=== PATIENT | male | born 1980 | race Caucasian/White ===

== ENCOUNTER 2016-07-19 09:56 | Observation (INO) | payer OTHER ==
[~2016-07-19] VITALS: Ht 177.8 cm; Wt 130.3 kg
[~2016-07-19 09:56] MED LIST: ACET1CAP18 PO; BACITRACIN TOP OINT 15 GM TUBE ONE; LIDOCAINE 1%/EPINEPHrine 1:100,000 SOLN 50 ML VIAL ONE; MULTTAB67 PO; OXYMETAZOLINE HCL 0.05% 15 ML NASAL SPRAY ONE
[2016-07-19] MEDS ORDERED: AMPICILLIN-SULBACTAM INJ 3 GM VIAL ONE (10:33)
[2016-07-19] MEDS ORDERED: SODIUM CHLORIDE 0.9% INJ 100 ML ONE (10:34)
[2016-07-19 10:42] VITALS: BP 153/82; PULSE 59; RESP 20; TEMP 97.7; O2SAT 97
[2016-07-19] MEDS ORDERED: SODIUM CHLORID 0.9% 500 ML IV PRN (10:45)
[2016-07-19] MEDS ORDERED: INSULIN HUMAN REGULAR 1,000 UNITS/10 ML VIAL SQ PRN (10:45)
[2016-07-19] MEDS ORDERED: METOPROLOL TARTRATE 25 MG TAB PO PRN (10:45)
[2016-07-19] MEDS ORDERED: CHLORHEXIDINE GLUCONATE 2 % 1 PACK (2 CLOTHS) TOPICAL PRN (10:45)
[2016-07-19] MEDS ORDERED: LACTATED RINGER'S 1000 ML IV PRN (10:45)
[2016-07-19] MEDS ORDERED: POVIDONE IODINE 5% (ANTISEPSIS KIT) 4 APPLICATIONS EACH NARE PRN (10:45)
[2016-07-19] MEDS ORDERED: VIST25CA PO (10:48)
[2016-07-19] MEDS ORDERED: IBUP200C PO (10:48)
[2016-07-19] MEDS ORDERED: AMPICILLIN/SULBAC 3 GM/NS 100 ML IV SCH ×2 (11:00)
[2016-07-19] MEDS ORDERED: METOCLOPRAMIDE HCL 10 MG/2 ML VIAL ONE (11:18)
[2016-07-19] MEDS ORDERED: FAMOTIDINE 20 MG/2 ML VIAL ONE (11:18)
[2016-07-19] MEDS ORDERED: ACETAMINOPHEN 1000 MG/100 ML VIAL IV ONE (11:18)
[2016-07-19] MEDS ORDERED: MIDAZOLAM HCL 2 MG/2 ML VIAL ONE ×2 (11:18→13:38)
[2016-07-19] MEDS ORDERED: DEXAMETHASONE SOD PHOS 4 MG/ML VIAL ONE (11:18)
[2016-07-19] MEDS ORDERED: DICLOFENAC SODIUM 37.5 MG/ML VIAL IV PUSH ONE (11:19)
[2016-07-19] MEDS ORDERED: ONDANSETRON HCL 4 MG/2 ML VIAL IV PUSH ONE (12:00)
[2016-07-19] MEDS ORDERED: LACTATED RINGER'S 1000 ML INJ 1,000 ML IV ONE (12:00)
[2016-07-19] MEDS ORDERED: PROPOFOL 200 MG/20 ML AMP IV ONE (12:00)
[2016-07-19] MEDS ORDERED: NEOSTIGMINE METHYLSULFATE 10 MG/10 ML VIAL IV PUSH ONE (12:00)
[2016-07-19] MEDS ORDERED: DO NOT ADM ANY ANTICOAGULANT DRUGS PRN (13:28)
[2016-07-19] MEDS ORDERED: fentaNYL CITRATE 250 MCG/5 ML AMP ONE (13:37)
[2016-07-19] MEDS ORDERED: MORPHINE SULFATE 8 MG/ML INJ ONE (14:36)
[2016-07-19] MEDS ORDERED: *morphine SULFATE 8 MG/ML PERIprocedure ONLY ONE (16:19)
[2016-07-19] MEDS ORDERED: *ONDANSETRON 4 MG VIAL PERIprocedural Use ONLY ONE (16:30)
[2016-07-19] MEDS: ACETAMINOPHEN/HYDROcodone 325 MG/5 MG TAB PO PRN ×2 (17:44→21:36)
[2016-07-19 18:36] VITALS: BP 153/79; PULSE 64; RESP 22; TEMP 96.5; O2SAT 96
[2016-07-19 20:00] VITALS: BP 148/84; PULSE 53; RESP 20; TEMP 96.6; O2SAT 96; O2SAT 99
[2016-07-19] MEDS: ONDANSETRON HCL 4 MG/2 ML VIAL IV PUSH PRN (21:24)
[2016-07-19] MEDS: AMPICILLIN/SULBAC 3 GM/NS 100 ML IV SCH ×2 (21:25)
[2016-07-20 01:03] VITALS: BP 155/81; PULSE 52; RESP 20; TEMP 96.1; O2SAT 98
[2016-07-20] MEDS: ACETAMINOPHEN/HYDROcodone 325 MG/5 MG TAB PO PRN ×3 (02:04→10:01)
[2016-07-20 04:09] VITALS: BP 148/82; PULSE 58; RESP 20; TEMP 97.1; O2SAT 98
[2016-07-20] MEDS: AMPICILLIN/SULBAC 3 GM/NS 100 ML IV SCH ×2 (05:09)
[2016-07-20] MEDS: ONDANSETRON HCL 4 MG/2 ML VIAL IV PUSH PRN (06:08)
[2016-07-20 06:11] VITALS: O2SAT 98
[2016-07-20 08:22] VITALS: BP 155/95; PULSE 55; RESP 19; TEMP 97; O2SAT 97
[2016-07-20] MEDS ORDERED: CEFP250T PO (10:37)
[2016-07-20] MEDS ORDERED: HYDR-3516 PO (10:37)
--- NOTE | 2016-07-21 12:41 | MP ---
cc: ALTA DISLA M.D. DATE OF SURGERY: July 19, [address] Alta Disla. PREOPERATIVE DIAGNOSIS 1. Sinonasal polyposis. 2. Chronic pansinusitis. 3. Nasal airway obstruction. 4. Nasal septal deviation. 5. Hypertrophy of inferior turbinates. POSTOPERATIVE DIAGNOSIS 1. Sinonasal polyposis. 2. Chronic pansinusitis. 3. Nasal airway obstruction. 4. Nasal septal deviation. 5. Hypertrophy of inferior turbinates. OPERATION PERFORMED 1. Open repair nasal septal fracture. 2. Bilateral submucosal resection of inferior turbinates. 3. Bilateral endoscopic nasal polypectomy. 4. Left endoscopic total ethmoidectomy. 5. Left endoscopic maxillary antrostomy with removal of maxillary sinus tissue. 6. Left endoscopic exploration of frontal sinus duct. 7. Left endoscopic sphenoidotomy with removal of sphenoid sinus tissue. 8. Right endoscopic excision of curtis bullosa. INDICATIONS Documented in the history and physical. DESCRIPTION OF OPERATION The patient was taken to OR #8 and placed in the supine position. Following induction of general anesthesia and intubation the nose was packed bilaterally with cotton pledgets saturated in 0.05% Oxymetazoline. The nose was injected in the septal mucosa and inferior turbinates with a total of 12 mL of 1% Xylocaine with epinephrine 1:100,000. He was then prepped and draped for surgery. Nasal packing was removed and a vnice-transfixion incision was made in the left nasal vestibule and through this incision the mucosa of septum was elevated bilaterally as far as the junction of the bony and cartilaginous septum. This exposed the quadrangular cartilage which showed severe deviation due to misalignment of the maxillary crest and the inferior border of the quadrangular cartilage also showed evidence of old fracture with numerous comminuted fracture fragments obstructing the airway bilaterally. A cumulative area of 2 x 2.5 cm of this cartilage was removed preserving 1.5 cm dorsal and caudal cartilaginous struts. When this was completed the mucosa was elevated from the bony septum and the maxillary crest and these were removed using Nicole Gary forceps and Kishan septal forceps on the bony septum and a 6-mm Phoenix chisel on the maxillary crest. The anterior nasal spine was preserved. The incision was then closed with a running suture of 4-0 Chromic and mucosal layers of septum were approximated to each other with a quilting stitch of 4-0 Plain gut. Inferior turbinates were addressed next. These were fractured out medially and stab incisions were opened along their inferior surfaces and through these incisions the submucosal soft tissue was reduced using a curette and preserving the conchal bone. The incisions were then cauterized using the suction Bovie at 35 newman and the remnants of the inferior turbinates were then re-lateralized to the lateral nasal wall. This point forward the operation was completed using endoscopic visualization. Examination showed there to be polypoid tissue prolapsing from the middle and superior meatus obstructing the superior two- thirds of the nasal vault and obscuring the lateral wall anatomy. This polypoid tissue was then injected with an additional 3 mL per each side of the 1% Xylocaine with epinephrine 1:100,000 and then using the power microdebrider the polyps were removed allowing further examination of the lateral nasal wall. The left side was then further injected into the attachments of the middle turbinates and the ethmoid cells using the same lidocaine and epinephrine solution and then the left middle turbinate was amputated using through cutting Blakesley forceps and the power microdebrider. This exposed additional polyps within the posterior ethmoid cells. The turbinate was passed off the field and included in the specimen labeled left sinus contents. Next, the uncinate process was removed using a sickle knife and Blakesley forceps and the ethmoid cells were bluntly penetrated using Blakesley forceps and then exenterated using the power microdebrider. The basal lamella was reduced medially to laterally with the debrider and the posterior cells were entered and these were also exenterated. There was fairly heavy bleeding during this process due to the inflammation of the polypoid tissue. The ethmoids then were packed with cotton pledgets saturated in Oxymetazoline while the maxillary ostium was enlarged using Stammberger forceps and the power microdebrider. Additional polypoid tissue was removed from this cavity following enlargement of the ostium. The frontal duct was explored using 70 degree scope and upbiting Blakesley forceps. Heavy polypoid tissue was removed from this area which resulted in additional bleeding from the inflamed tissue within the frontal duct. Lastly, on the left side the sphenoid ostium was enlarged using a #10 suction and the power microdebrider and the cavity was debrided of polypoid tissue. Additional packing was then placed in the left side to control bleeding while the right side was addressed. Additional injections were made into the middle turbinate on the right side into its attachments and its posterior extent as well as in the ethmoid cavities. The turbinate was then amputated in the same fashion as on the right using through cutting Blakesley forceps and the power microdebrider. This was included in the specimen labeled right sinus contents. By this time the blood loss exceeded 500 mL and it was elected not to pursue further exenteration of the right-sided sinus cavities. This side was then packed with cotton pledgets soaked in Oxymetazoline and remained in place for a period of 3 minutes. All packing was then removed. The nasal vault and sinuses were evacuated with suction and then filled with Stammberger sinus foam on both sides. The inferior nasal vault was packed with 5.5 cm rapid rhino packs, each had been inflated with 5 mL of air and the procedure was terminated. The patient was reversed from anesthesia and taken to recovery in good condition. There were no complications. Blood loss was 500 mL. MD CHARANJIT Wright/TLL /6:48 AM /12:20 PM
== END 2016-07-20 11:04 | disposition home or self-care (01) ==
LOC: HSDC 09:56 → N05A 18:16
PROVIDERS: ADMIT Otolaryngology; ATTEND Otolaryngology
DX: J34.2 Deviated nasal septum (principal); I10 Essential (primary) hypertension; J33.0 Polyp of nasal cavity; J33.8 Other polyp of sinus; J34.3 Hypertrophy of nasal turbinates; J32.4 Chronic pansinusitis; E66.9 Obesity, unspecified; Z68.41 Body mass index [BMI] 40.0-44.9, adult
CPT/HCPCS: 30140; 30520; 31240; 31255; 31267; 31276; 31288; 88305; 88311; G0378; J0131; J0295; J1100; J2250; J2270; J2405; J2710; J2765; J3010; J7120; 88304; J1130

== ENCOUNTER → 2017-02-14 | Day surgery (SDC) | payer OTHER ==
[~2017-02-14] VITALS: Ht 177.8 cm; Wt 134.0 kg
[~2017-02-14] MED LIST changes: +AMPICILLIN/SULBAC 3 GM/NS 100 ML IV SCH; -BACITRACIN TOP OINT 15 GM TUBE ONE; +CEFP250T PO; +CHLORHEXIDINE GLUCONATE 2 % 1 PACK (2 CLOTHS) TOPICAL PRN; +FAMOTIDINE 20 MG/2 ML VIAL ONE; +HYDR-3516 PO; +IBUP200C PO; +INSULIN HUMAN REGULAR 1,000 UNITS/10 ML VIAL SQ PRN; +LIDOCAINE 1%/EPINEPHrine 1:100,000 SOLN 20 ML VIAL ONE; -LIDOCAINE 1%/EPINEPHrine 1:100,000 SOLN 50 ML VIAL ONE; +MEDR4PAK PO; +METOPROLOL TARTRATE 25 MG TAB PO PRN; +MIDAZOLAM HCL 2 MG/2 ML VIAL ONE; +MORPHINE SULFATE 8 MG/ML INJ ONE; +ONDANSETRON HCL 4 MG/2 ML VIAL ONE; +POVIDONE IODINE 5% (ANTISEPSIS KIT) 4 APPLICATIONS EACH NARE PRN; +SODIUM CHLORID 0.9% 500 ML IV PRN; +TYLE325T PO; +VIST25CA PO
[2017-02-14] MEDS: LACTATED RINGER'S 1000 ML IV PRN ×2 (09:49→14:00)
[2017-02-14 13:45] VITALS: PULSE 91
[2017-02-14 15:45] VITALS: BP 95/54; PULSE 57; RESP 14; TEMP 98.2; O2SAT 96
--- NOTE | 2017-02-16 08:59 | MP ---
cc: LATA DISLA M.D. DATE OF SURGERY February 14, [address] Alta Disla PREOPERATIVE DIAGNOSES 1. Chronic pansinusitis. 2. Sinonasal polyposis. 3. Hypertrophy inferior turbinates. POSTOPERATIVE DIAGNOSES 1. Chronic pansinusitis. 2. Sinonasal polyposis. 3. Hypertrophy inferior turbinates. OPERATION PERFORMED 1. Right endoscopic total ethmoidectomy. 2. Right endoscopic maxillary antrostomy with removal of maxillary sinus contents. 3. Right endoscopic exploration of frontal sinus duct with balloon sinuplasty. 4. Right endoscopic sphenoidotomy with removal of sphenoid sinus tissue. 5. Bilateral submucosal resection of inferior turbinates. INDICATIONS Documented in the history and physical. DESCRIPTION OF OPERATION The patient was taken to OR #2 and placed in the supine position. Following induction of general anesthesia and intubation the nose was packed bilaterally with cotton pledgets saturated in 0.05% oxymetazoline. He was then prepped and draped for surgery. The packing was removed and the right nasal vault was examined using a 0 degree straight endoscope. Injections of 1% lidocaine and epinephrine were made into the uncinate processes and the ethmoid cells. The middle turbinate had been removed in a previous sinus operation. The uncinate process then was removed using a sickle knife and Blakesley forceps exposing the ethmoid sinuses. These were bluntly penetrated with Blakesley forceps and then debrided anteriorly to posteriorly using blunt dissection with the power microdebrider. This was carried back as far as the rostrum of the sphenoid. The maxillary ostium was enlarged using Stammberger forceps and the power microdebrider and the polypoid tissue filling the maxillary sinus was debrided with an up-biting Blakesley forceps rotated 90 degrees. The frontal duct was then explored using the Acclarent balloon technique. The guidewire was advanced into the frontal sinus. The balloon was advanced over the wire and inflated at the superior level at the midpoint and inferiorly at the junction with the ethmoid sinuses at each level to a pressure of 12 atmospheres. The balloon was removed and using a 70-degrees scope the duct was inspected. It was verified patent all the way into the frontal sinus. Lastly, using a #10 suction, the sphenoid sinus ostium was probed and then enlarged using the power debrider. Using a 0-degree scope, the contents of the sphenoid sinus was removed and was included in the specimen labeled right sinus contents. When these were completed the sinuses were irrigated with iced saline and repacked with cotton pledgets saturated in oxymetazoline. These remained in place while the inferior turbinates were addressed. There were fractured out medially and stab incisions made along their inferior surfaces. Through these incisions the submucosal soft tissue was reduced using a curette and preserving the conchal bone. The incisions were then cauterized using the suction Bovie at 35 newman and the remnants of the inferior turbinates then relateralized to the lateral nasal wall. The pledgets were then removed from the right sinus cavity. They were once again irrigated and suctioned and filled in all cavities with Stammberger sinus foam. The inferior of the nasal vault was then packed bilaterally with 7.5 cm Rapid Rhino packs each inflated with 7 mL of air and the procedure was terminated. The patient was reversed from anesthesia and taken to Recovery in good condition. There were no complications. Blood loss was 400 mL. MD CHARANJIT Wright/SSB /7:39 AM /8:53 AM
== END | disposition home or self-care (01) ==
LOC: PHSDC 08:23
PROVIDERS: ATTEND Otolaryngology
DX: J32.4 Chronic pansinusitis (principal); J34.3 Hypertrophy of nasal turbinates
CPT/HCPCS: 00160; 30140; 31255; 31267; 31276; 31288; 88305; 88311; J0295; J2250; J2270; J2405; J3010; J7120